=== PATIENT | male | born 1955 | race Caucasian/White ===

== ENCOUNTER 2018-08-23 19:40 | Inpatient (IN) ==
--- NOTE | 2018-08-23 21:19 | DR.EXTPAIN ---
HPI Time seen Time seen: 21:25 PCP Primary Care Physician: HUGO HPI Comment HPI Comment: SEEN IN ED 10DAYS AGO. PLACE ON ANTIBIOTICS BUT NOT GETTING BETTER. THE TOE IS IS NOT PAINFUL BUT YHE ANKLE IS PAINFULL. NO FEVER OR DRAINAGE. FAIL OUT PATIENT TREATMENT. Complaint/Symptoms Chief Complaint Doctor Comments: PAIN RIGHT FOOT WITH NECROTIC GREAT TOE TIMES THREE WEEKS. Chief Complaint:: RIGHT FOOT, ANKLE EDEMA. NOTED WOUND TO RIGHT GREAT TOE. NOTED REDNESS, EDEMA TO RIGHT FOOT. NOTED WHITE BLANCHED AREA AROUND WOUND. Self Treatment fo Chief Complaint: ANTIBIOTICS Nurses notes reviewed Nurses Notes Review: Yes Source History Provided: Patient Mode of arrival Mode of Arrival: Ambulatory Timing Onset of Chief Complaint: 08/13/18 Context History of: None Associated signs and symptoms Associated Signs and Symptoms: Pain, Swelling and Shortness of Breath PMH PMH Past Medical History: Yes Past Medical History: Diabetes Past Surgical History: No Family History History of Family Medical Conditions: No Social History Type of Tobacco Use: None Alcohol Use: None Do you use any recreational Drugs:: No Lives Where: Home infectious screening Have you traveled outside the country in the last 6 months?: No Isolation: Standard ROS Review of Systems Constitutional: No Symptoms Reported and Fatigue; negative Chills and Fever Eyes: No Symptoms Reported ENTM: No Symptoms Reported Respiratoy: Short of Breath (ON EXERSION.) Cardiovascular: No Symptoms Reported Gastrointestinal/Abdominal: No Symptoms Reported Genitourinary: No Symptoms Reported Neurological: No Symptoms Reported Musculoskeletal: No Symptoms Reported, Joint Pain, Muscle Pain, Right, Ankle and Foot Integumentary: Other (PAIN RIGHT FOOT WITH SWELLING. GREAT TOE NECROTIC.) Hematologic/Lymphatic: No Symptoms Reported Endocrine: Decreased Appetite; negative [place] Psychiatric: No Symptoms Reported All Other Systems: Reviewed and Negative PE Vital Signs Vitals: Temperature 97.9 F Pulse Rate 98 Respiratory Rate 18 Blood Pressure [Left Arm] 168/81 Blood Pressure 149/77 O2 Sat by Pulse Oximetry 99 General Limitations: No Limitations General Appearance: Alert and In No Apparent Distress Head Head Exam: Normal Inspection and Atraumatic Eyes Eye exam: Normal Appearance, PERRL and EOMI; negative Scleral Icterus and Conjunctival Injection ENT ENT Exam: Normal Exam, Normal Oropharynx, Normal External Ear Exam, Mucous Membranes Moist and TM's Normal Bilaterally Neck Neck Exam: Normal Inspection and Trachea Midline Chest Chest Inspection: Normal Inspection and Symmetric Chest Wall Rise Respiratory Respiratory Exam: Normal Lung Sounds Bilat Respiratory Exam: Bilateral: Clear to Auscultation Cardiovascular Cardiovascular Exam: Regular Rate and Normal Rhythm Abdominal Exam Abdominal Exam: Normal Inspection, Normal Bowel Sounds and Soft Extremities Extremities Exam: Tenderness (RIGHT GREAT TOE NECROTIC AND RT FOOT SWOLLEN AND TENDER.) and Edema Back Back Exam: Normal Inspection Neurological Neurological Exam: Alert, Oriented X3 and CN II-XII Intact; negative Motor Sensory Deficit Psychiatric Psychiatric Exam: Normal Affect and Normal Mood Skin Skin Exam: Erythema Distribution: RLE Description: Erythematous MDM Differential Diagnosis Differential Diagnosis: Other (CELLULITIS AND DIABETIC FOOT ULCER RIGHT FOOT.) COURSE Treatment Treatment: SEE ORDERS. Consultation Consultation Comments: DISCUSS PATIENT WITH DR. RODARTE. HE WILL ADMIT PATIENT. Education/Counseling Education/Counseling: Patient, Family and Education Educated On: Diagnosis ROR Labs Reviewed Laboratory Results Reviewed?: Yes Result Diagrams: 08/23/18 21:25 08/23/18 21:25 Laboratory: WBC 10.4 X10^3/uL (3.6-10.0) H 08/23/18 21:25 RBC 4.47 X10^6/uL (4.7-6.0) L 08/23/18 21:25 Hgb 14.9 g/dL (13.5-18.0) 08/23/18 21:25 Hct 42.1 % (42.0-54.0) 08/23/18 21:25 MCV 94.0 fL (80.0-100.0) 08/23/18 21:25 MCH 33.4 pg (27.0-34.0) 08/23/18 21:25 MCHC 35.5 g/dL (33.0-35.0) H 08/23/18 21:25 RDW 12.4 % (11.6-16.5) 08/23/18 21:25 Plt Count 294 X10^3/uL (150.0-450.0) 08/23/18 21:25 MPV 7.0 fL (7.4-11.0) L 08/23/18 21:25 Neut % (Auto) 68.6 % (42.0-75.0) 08/23/18 21:25 Lymph % (Auto) 20.9 % (21.0-51.0) L 08/23/18 21:25 [place] % (Auto) 8.5 % (0.0-13.0) 08/23/18 21:25 Eos % (Auto) 1.3 % (0.9-2.9) 08/23/18 21:25 Baso % (Auto) 0.7 % (0.2-1.0) 08/23/18 21:25 Neut # (Auto) 7.1 x10^3/uL (2.2-4.8) H 08/23/18 21:25 Lymph # (Auto) 2.2 X10^3/uL (1.3-2.9) 08/23/18 21:25 [place] # (Auto) 0.9 x10^3/uL (0.3-0.8) H 08/23/18 21:25 Eos # (Auto) 0.1 x10^3/uL (0.0-0.2) 08/23/18 21:25 Baso # (Auto) 0.1 X10^3/uL (0.0-0.1) 08/23/18 21:25 Absolute Nucleated RBC 0.0 /100WBC 08/23/18 21:25 Sodium 134 mmol/L (136-145) L 08/23/18 21:25 Corrected Sodium 135 mmol/L (136-145) L 08/23/18 21:25 Potassium 4.6 mmol/L (3.5-5.1) 08/23/18 21:25 Chloride 98 mmol/L (98-107) 08/23/18 21:25 Carbon Dioxide 27.8 mmol/L (21-32) 08/23/18 21:25 BUN 28 mg/dL (7-18) H 08/23/18 21:25 Creatinine 1.42 mg/dL (0.70-1.30) H 08/23/18 21:25 Est GFR (MDRD) Af Amer > 60 (>60) 08/23/18 21:25 Est GFR (MDRD) Non-Af 54 (>60) L 08/23/18 21:25 Glucose 144 mg/dL (65-99) H 08/23/18 21:25 Lactic Acid 0.8 mmol/L (0.4-2.0) 08/23/18 21:25 Calcium 9.8 mg/dL (8.5-10.1) 08/23/18 21:25 Corrected Calcium TNP 08/23/18 21:25 Total Bilirubin 0.50 mg/dL (0.2-1.0) 08/23/18 21:25 AST 17 Units/L (15-37) 08/23/18 21:25 ALT 35 Units/L (12-78) 08/23/18 21:25 Alkaline Phosphatase 78 Units/L (46-116) 08/23/18 21:25 Total Protein 8.8 g/dL (6.4-8.2) H 08/23/18 21:25 Albumin 3.8 g/dL (3.4-5.0) 08/23/18 21:25 Globulin 5.0 g/dL (2.5-4.5) H 08/23/18 21:25 Albumin/Globulin Ratio 0.8 Ratio (1.1-2.1) L 08/23/18 21:25 Specimen Type Clean catch urine 08/23/18 22:40 Urine Color Yellow (YELLOW) 08/23/18 22:40 Urine Appearance Clear (CLEAR) 08/23/18 22:40 Urine pH 5.0 (5.0 - 8.0) 08/23/18 22:40 Ur Specific [place] 1.015 (1.000-1.030) 08/23/18 22:40 Urine Protein 1+ (NEGATIVE) 08/23/18 22:40 Urine Glucose (UA) Negative (NEGATIVE) 08/23/18 22:40 Urine Ketones Negative (NEGATIVE) 08/23/18 22:40 Urine Occult Blood Negative (NEGATIVE) 08/23/18 22:40 Urine Nitrite Negative (NEGATIVE) 08/23/18 22:40 Urine Bilirubin Negative (NEGATIVE) 08/23/18 22:40 Urine Urobilinogen Normal (NORMAL) 08/23/18 22:40 Ur Leukocyte Esterase 1+ (NEGATIVE) 08/23/18 22:40 Urine RBC None seen /HPF (NONE SEEN) 08/23/18 22:40 Urine WBC 0-2 /HPF (NONE SEEN) 08/23/18 22:40 Ur Squamous Epith Cells Rare /HPF (NEGATIVE) 08/23/18 22:40 Amorphous Sediment Trace /HPF (NEGATIVE) 08/23/18 22:40 Urine Bacteria Negative /HPF (NEGATIVE) 08/23/18 22:40 Ur Culture Indicated? No/not indicated 08/23/18 22:40 XRAY XRAY Interpreted by: Radiologist XRAY Findings: REPORT DISCUSS WITH PATIENT. EKG [place]: Normal Rhythm: NSR Block: None Hypertrophy: None ST: Normal Diagnosis Discharge Problem: Diabetic foot ulcer, Cellulitis of great toe of right foot
[2018-08-23 21:41] LABS: BASOPHILS # (AUTO) 0.1 X10^3/uL (0.0-0.1); BASOPHILS % (AUTO) 0.7 % (0.2-1.0); EOSINOPHILS # (AUTO) 0.1 x10^3/uL (0.0-0.2); EOSINOPHILS % (AUTO) 1.3 % (0.9-2.9); HEMATOCRIT 42.1 % (42.0-54.0); HEMOGLOBIN 14.9 g/dL (13.5-18.0); LYMPHOCYTES # (AUTO) 2.2 X10^3/uL (1.3-2.9); LYMPHOCYTES % (AUTO) 20.9 % (21.0-51.0); MEAN CORPUSCULAR HEMOGLOBIN 33.4 pg (27.0-34.0); MEAN CORPUSCULAR HGB CONC 35.5 g/dL (33.0-35.0); MONOCYTES # (AUTO) 0.9 x10^3/uL (0.3-0.8); MONOCYTES % (AUTO) 8.5 % (0.0-13.0); NEUTROPHILS # (AUTO) 7.1 x10^3/uL (2.2-4.8); NEUTROPHILS % (AUTO) 68.6 % (42.0-75.0); PLATELET COUNT 294 X10^3/uL (150.0-450.0); RED BLOOD COUNT 4.47 X10^6/uL (4.7-6.0); RED CELL DISTRIBUTION WIDTH 12.4 % (11.6-16.5); WHITE BLOOD COUNT 10.4 X10^3/uL (3.6-10.0)
[2018-08-23 21:49] LABS: ALANINE AMINOTRANSFERASE 35 Units/L (12-78); ALBUMIN 3.8 g/dL (3.4-5.0); ALKALINE PHOSPHATASE 78 Units/L (46-116); ASPARTATE AMINO TRANSFERASE 17 Units/L (15-37); BLOOD UREA NITROGEN 28 mg/dL (7-18); CALCIUM 9.8 mg/dL (8.5-10.1); CARBON DIOXIDE 27.8 mmol/L (21-32); CHLORIDE 98 mmol/L (98-107); COR NA(FOR HYPERGLY) 135 mmol/L (136-145); CREATININE 1.42 mg/dL (0.70-1.30); SODIUM 134 mmol/L (136-145); TOTAL PROTEIN 8.8 g/dL (6.4-8.2); eGFR NON BLACK RACES 54 (>60)
--- NOTE | 2018-08-23 21:54 | RAD ---
HISTORY: Right foot pain with ankle edema. Right great toe wound Study: 2 views of the right foot. Comparison: None Findings: No acute fracture or dislocation. Joint spaces are well aligned. Soft tissue irregularity along the distal 1st digit without definite underlying bony abnormality. IMPRESSION: 1. Soft tissue irregularity along the distal 1st digit without definite underlying bony abnormality Reported By:
[2018-08-23 22:01] LABS: LACTIC ACID 0.8 mmol/L (0.4-2.0)
[2018-08-23] MEDS ORDERED: PHENERGAN TAB 25 MG PO PRN (22:46)
[2018-08-23] MEDS ORDERED: MORPHINE SULFATE INJ 4 MG IVP PRN (22:46)
[2018-08-23] MEDS ORDERED: VANCOMYCIN 1 GRAM PREMIX (ADDVANTAGE) 250 ML IV ONE (22:58)
[2018-08-23] MEDS ORDERED: VANCOMYCIN HCL 1 GM VIAL 1 G in D5W 250 ML IV 250 ML IV SCH (23:00)
[2018-08-23 23:01] LABS: BILIRUBIN,URINE NEGATIVE (NEGATIVE); BLOOD/HEMOGLOBIN,URINE NEGATIVE (NEGATIVE); GLUCOSE, URINE NEGATIVE (NEGATIVE); KETONES,URINE NEGATIVE (NEGATIVE); LEUKOCYTE ESTERASE ,URINE 1+ (NEGATIVE); NITRITES,URINE NEGATIVE (NEGATIVE); PROTEIN,URINE 1+ (NEGATIVE); UROBILINOGEN,URINE NORMAL (NORMAL)
[2018-08-23 23:12] LABS: AMORPHOUS SEDIMENT,UR TRACE /HPF (NEGATIVE); APPEARANCE,URINE CLEAR (CLEAR); BACTERIA,URINE NEGATIVE /HPF (NEGATIVE); COLOR,URINE YELLOW (YELLOW); RBC,URINE NONE SEEN /HPF (NONE SEEN); SQUAMOUS EPITHELIAL CELL,UR RARE /HPF (NEGATIVE)
[2018-08-23] MEDS: NS 1000 ML 1,000 ML IV SCH (23:29)
[2018-08-24] MEDS ORDERED: PHENERGAN TAB 25 MG PO PRN (00:19)
[2018-08-24 01:13] VITALS: BMI 28.2
[2018-08-24 05:15] LABS: BASOPHILS # (AUTO) 0.1 X10^3/uL (0.0-0.1); BASOPHILS % (AUTO) 0.7 % (0.2-1.0); EOSINOPHILS # (AUTO) 0.2 x10^3/uL (0.0-0.2); EOSINOPHILS % (AUTO) 2.8 % (0.9-2.9); HEMATOCRIT 37.5 % (42.0-54.0); HEMOGLOBIN 13.3 g/dL (13.5-18.0); LYMPHOCYTES # (AUTO) 2.3 X10^3/uL (1.3-2.9); LYMPHOCYTES % (AUTO) 29.8 % (21.0-51.0); MEAN CORPUSCULAR HEMOGLOBIN 33.6 pg (27.0-34.0); MEAN CORPUSCULAR HGB CONC 35.5 g/dL (33.0-35.0); MEAN CORPUSCULAR VOLUME 94.7 fL (80.0-100.0); MEAN PLATELET VOLUME 7.4 fL (7.4-11.0); MONOCYTES # (AUTO) 0.8 x10^3/uL (0.3-0.8); MONOCYTES % (AUTO) 10.7 % (0.0-13.0); NEUTROPHILS # (AUTO) 4.4 x10^3/uL (2.2-4.8); PLATELET COUNT 258 X10^3/uL (150.0-450.0); RED BLOOD COUNT 3.96 X10^6/uL (4.7-6.0); RED CELL DISTRIBUTION WIDTH 12.4 % (11.6-16.5); WHITE BLOOD COUNT 7.9 X10^3/uL (3.6-10.0)
[2018-08-24 05:31] LABS: ALANINE AMINOTRANSFERASE 30 Units/L (12-78); ALBUMIN 3.1 g/dL (3.4-5.0); ALKALINE PHOSPHATASE 68 Units/L (46-116); ASPARTATE AMINO TRANSFERASE 16 Units/L (15-37); BLOOD UREA NITROGEN 24 mg/dL (7-18); CALCIUM 8.9 mg/dL (8.5-10.1); CARBON DIOXIDE 28.4 mmol/L (21-32); CHLORIDE 103 mmol/L (98-107); COR CA(FOR HYPOALB) 9.6 mg/dL (8.5-10.1); COR NA(FOR HYPERGLY) 138 mmol/L (136-145); SODIUM 137 mmol/L (136-145); TOTAL PROTEIN 7.4 g/dL (6.4-8.2); eGFR NON BLACK RACES > 60 (>60)
[2018-08-24] MEDS: ZOSYN VIAL 3.375 GRAMS 3.375 G in NS 100 ML IV + SPIKE MINIBAG* 100 ML IV SCH ×3 (05:46→22:26)
[2018-08-24] MEDS: MILK OF MAGNESIA PO SCH ×3 (07:59→20:46)
[2018-08-24] MEDS: NS 1000 ML 1,000 ML IV SCH ×3 (08:01→23:32)
--- NOTE | 2018-08-24 14:02 | CT ---
CTA OF THE ABDOMEN AND PELVIS AND BILATERAL LOWER EXTREMITY RUNOFF WITHOUT AND WITH CONTRAST CLINICAL INDICATION: Right foot and ankle edema. TECHNIQUE: Written informed consent was obtained. Non-gated spiral axial images of the lower thorax, abdomen, pelvis and lower extremities were obtained with nonionic intravenous contrast. 3D reconstru ctions were performed. Dose reduction techniques including Automated Exposure Control (AEC) and adjus tment of mA and kV were utlized. COMPARISON: None. FINDINGS: VASCULAR: Abdominal Aorta: No significant stenosis. Inferior Mesenteric Artery: No significant stenosis. RIGHT PELVIS/LOWER EXTREMITY: Right Common Iliac Artery: No significant stenosis. Right Internal Iliac Artery: No significant stenosis. Right External Iliac Artery: No significant stenosis. Right Common Femoral Artery: No significant stenosis. Right Profunda Femoris Artery: No significant stenosis. Right Superficial Femoral Artery: No significant stenosis. Right Popliteal Artery: No significant stenosis. Right Anterior Tibial Artery: Severe stenosis of the midportion the distal patency appears to be main tained. Right Tibioperoneal Trunk: No significant stenosis. Right Posterior Tibial Artery: No significant stenosis. Crosses the ankle to supply the plantar arch . Right Peroneal Artery: No significant stenosis. LEFT PELVIS/LOWER EXTREMITY: Left Common Iliac Artery: No significant stenosis. Left Internal Iliac Artery: No significant stenosis. Left External Iliac Artery: No significant stenosis. Left Common Femoral Artery: No significant stenosis. Left Profunda Femoris Artery: No significant stenosis. Left Superficial Femoral Artery: No significant stenosis. Left Popliteal Artery: No significant stenosis. Left Anterior Tibial Artery: Severe stenosis at the midportion but distal patency appears to be maint ained. Left Tibioperoneal Trunk: No significant stenosis. Left Posterior Tibial Artery: No significant stenosis. Crosses the ankle to supply the plantar arch. Left Peroneal Artery: No significant stenosis. Abdomen without: No renal stones. Abdomen with: Liver and spleen are normal in size, enhancement characteristics and contour. No focal lesions. The portal vein is patent. No ductal dilitation. Gallbladder is present. No gallbladder wall thickening. The pancreas is unremarkable. Adrenal glands are normal. Kidneys enhance symmetrically w ithout hydronephrosis. No bowel obstruction or inflammation. Normal appendix. No abnormal appearing mesenteric or retroperit [place] lymph nodes. No free fluid or fluid collections. Pelvis without: No distal ureteral stones or bladder stones. Pelvis with: Thick-walled bladder. Prostate not enlarged. No free fluid or abnormal pelvic lymph nod es. No aggressive osseous lesions. IMPRESSION: 1. 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 2. Thick-walled bladder. Correlate with bladder outlet obstruction. Reported By:
[2018-08-24] MEDS: HumuLIN R SUBCUT PRN ×2 (17:09→22:00)
--- NOTE | 2018-08-24 19:57 | DR.H&P ---
H&P - History & Physical for Day of: H&P Date: 08/23/18 - Chief Complaint Chief Complaint: RIGHT FOOT AND ANKLE REDNESS AND EDEMA - History of Present Illness History of Present Illness: IS A 63 YEAR OLD WHITE MALE WHO PRESENTED TO THE EMERGENCY ROOM WITH COMPLAINTS OF RIGHT FOOT AND ANKLE EDEMA. HE REPORTS THAT SYMPTOMS STARTED ON 08/13/2018. HE WAS SEEN IN THE ER AND PLACED ON ORAL ANTIBIOTICS, HOWEVER, SYMPTOMS HAVE WORSENED. ON EXAMINATION, RIGHT FOOT AND ANKLE NOTED WITH ERYTHEMA AND EDEMA. THERE IS A NECROTIC WOUND TO THE GREAT TOE. NOTED WHITE BLANCED AREA AROUND WOUND. HE REPORTS NUMBNESS TO AREA. HE REPORTS RECENTLY BEING DIAGNOSED WITH DIABETES, HOWEVER, DOES NOT TAKE ANY MEDICATIONS FOR IT. ON ARRIVAL, VITALS WERE 97.9-98-18-99%-149/77. LABS WERE OBTAINED. ABNORMAL LAB VALUES INCLUDE THE FOLLOWING: WBC 10.4, RBC 4.47, SODIUM 134, BUN 28, CREATININE 1.42, GLUCOSE 144, TOTAL PROTEIN 8.8. A RIGHT FOOT XRAY WAS OBTAINED AND REVEALED: Soft tissue irregularity along the distal 1st digit without de. finite underlying bony abnormality. HE WAS ADMITTED TO THE HOSPITAL FOR FURTHER EVALUATION AND TREATMENT. HE WAS STARTED ON VANCOMYCIN 1GM IV Q12H PRN PAIN, ZOSYN 3.375GM IV TID, AND MORPHINE 4MG IV Q6H PRN PAIN. WE PLAN TO FOLLOW UP WITH AM LABS AND CONTINUE TO MONITOR PATIENT. - Past Medical History Past Medical History: Diabetes - Social History Does patient currently use any type of tobacco product: Yes Have you used tobacco products in the last 12 months: Yes Type of Tobacco Use: None Alcohol Use: None Drug Use: None - Medications Home Medications: No Known Drug Allergies Allergy (Verified 08/23/18 20:37) - Physical Exam Vital Signs: Temperature 97.8 F Pulse Rate [Right Radial] 76 Pulse Rate 98 Respiratory Rate 18 Blood Pressure [Left Arm] 146/85 Blood Pressure 149/77 O2 Sat by Pulse Oximetry 98 - Allergies Allergies/Adverse Reactions: Allergies Allergy/AdvReac Type Severity Reaction Status Date / Time No Known Drug Allergies Allergy Verified 08/23/18 20:37
[2018-08-24] MEDS: COLACE CAP 100 MG PO SCH (20:46)
[2018-08-24] MEDS: SNACK - Diabetic Appropriate PO SCH (20:52)
[2018-08-24] MEDS: VANCOMYCIN HCL 500 MG VIAL 250 MG, VANCOMYCIN HCL 1 GM VIAL 1 G in D5W 250 ML IV 250 ML IV SCH (22:30)
[2018-08-24] MEDS ORDERED: D5W 250 ML IV 250 ML IV ONE (22:35)
[2018-08-24] MEDS ORDERED: VANCOMYCIN HCL 500 MG VIAL ONE (22:35)
[2018-08-24] MEDS ORDERED: VANCOMYCIN HCL 1 GM VIAL ONE (22:35)
[2018-08-25] MEDS: ZOSYN VIAL 3.375 GRAMS 3.375 G in NS 100 ML IV + SPIKE MINIBAG* 100 ML IV SCH ×3 (05:26→21:00)
[2018-08-25 06:01] LABS: BASOPHILS # (AUTO) 0.1 X10^3/uL (0.0-0.1); BASOPHILS % (AUTO) 0.8 % (0.2-1.0); EOSINOPHILS # (AUTO) 0.2 x10^3/uL (0.0-0.2); HEMATOCRIT 36.9 % (42.0-54.0); HEMOGLOBIN 12.9 g/dL (13.5-18.0); LYMPHOCYTES # (AUTO) 1.7 X10^3/uL (1.3-2.9); LYMPHOCYTES % (AUTO) 26.1 % (21.0-51.0); MEAN CORPUSCULAR HEMOGLOBIN 32.9 pg (27.0-34.0); MEAN CORPUSCULAR HGB CONC 34.9 g/dL (33.0-35.0); MEAN CORPUSCULAR VOLUME 94.5 fL (80.0-100.0); MEAN PLATELET VOLUME 7.5 fL (7.4-11.0); MONOCYTES # (AUTO) 0.6 x10^3/uL (0.3-0.8); MONOCYTES % (AUTO) 8.7 % (0.0-13.0); NEUTROPHILS # (AUTO) 3.9 x10^3/uL (2.2-4.8); NEUTROPHILS % (AUTO) 61.4 % (42.0-75.0); PLATELET COUNT 252 X10^3/uL (150.0-450.0); RED BLOOD COUNT 3.91 X10^6/uL (4.7-6.0); RED CELL DISTRIBUTION WIDTH 12.4 % (11.6-16.5); WHITE BLOOD COUNT 6.4 X10^3/uL (3.6-10.0)
[2018-08-25 06:17] LABS: ALANINE AMINOTRANSFERASE 32 Units/L (12-78); ALBUMIN 2.6 g/dL (3.4-5.0); ALKALINE PHOSPHATASE 64 Units/L (46-116); ASPARTATE AMINO TRANSFERASE 17 Units/L (15-37); BLOOD UREA NITROGEN 13 mg/dL (7-18); CALCIUM 8.4 mg/dL (8.5-10.1); CARBON DIOXIDE 29.8 mmol/L (21-32); CHLORIDE 106 mmol/L (98-107); COR CA(FOR HYPOALB) 9.5 mg/dL (8.5-10.1); COR NA(FOR HYPERGLY) 141 mmol/L (136-145); CREATININE 1.04 mg/dL (0.70-1.30); SODIUM 140 mmol/L (136-145); TOTAL PROTEIN 6.5 g/dL (6.4-8.2); eGFR NON BLACK RACES > 60 (>60)
--- NOTE | 2018-08-25 08:29 | PCM.PROG ---
Progress Note - Progress Note for Day of Date of Exam: 08/24/18 - Subjective Subjective: WAS ADMITTED FOR RIGHT FOOT AND ANKLE CELLULITIS WITH A NECROTIC DIABETIC ULCER TO THE RIGHT GREAT TOE. TODAY, HE IS ALERT AND ORIENTED, LYING IN BED ON MORNING ROUNDS. HE CONTINUES WITH ERYTHEMA AND EDEMA TO THE RIGHT FOOT. NO DRAINAGE NOTED AT THIS TIME. HE CONTINUES TO REPORT NUMBNESS TO THE RIGHT GREAT TOE. HIS VITALS THIS MORNING ARE 97.5-74-18-97%-145/81. LABS WERE OBTAINED. ABNORMAL LAB VALUES INCLUDE THE FOLLOWING: RBC 3.96, HGB 13.3, HCT 37.5, BUN 24, GLUCOSE 122, ALBUMIN 3.1. HE IS CURRENTLY RECEIVING VANCOMYCIN AND ZOSYN IV. WE WILL CONTINUE WITH CURRENT PLAN OF CARE AND CONSULT FOR POSSIBLE DEBRIDEMENT OF WOUND. WE WILL ALSO OBTAIN A LOWER EXTREMITY CTA WITH CONTRAST TO ASSESS BLOOD FLOW. OTHERWISE, WE WILL FOLLOW UP WITH AM LABS AND CONTINUE TO MONITOR PATIENT. - Past Medical Family Social History Past Med/Fam/Surg Hx: No changes since H&P Allergies: Allergies No Known Drug Allergies Allergy (Verified 08/23/18 20:37) - Review of Systems ROS: No change since H&P - Vital Signs and I&O's Vital Signs: Temperature 98.0 F Pulse Rate [Right Radial] 71 Pulse Rate 98 Respiratory Rate 20 Blood Pressure [Right Arm] 140/69 Blood Pressure [Left Arm] 146/85 Blood Pressure 149/77 O2 Sat by Pulse Oximetry 97 Intake and Output: Intake & Output 08/22/18 08/23/18 08/24/18 08/25/18 11:59 11:59 11:59 11:59 Intake Total 1000 / 1000 2870 / 2870 Balance 1000 / 1000 2870 / 2870 - Physical Exam Oriented: Normal Eyes: Normal Ear: Normal Nose: Normal Throat: Normal Respiratory: Normal Cardiovascular: Edema (RIGHT FOOT ) : Normal Auscultation: Bowel Sounds: Normal Palpation: Normal Tenderness: Normal Skin: Red (RIGHT FOOT ), Tender, Hot, Wound (RIGHT GREAT TOE) Musculoskeletal: Right, Ankle, Foot, Swelling, Tender Psychiatric: Normal Mood Description: Calm Affect: Normal Speech Pattern: Clear, Appropriate - Laboratory and Diagnostics Result Diagrams: 08/25/18 04:06 08/25/18 04:06 Labs: Laboratory WBC 6.4 X10^3/uL (3.6-10.0) 08/25/18 04:06 RBC 3.91 X10^6/uL (4.7-6.0) L 08/25/18 04:06 Hgb 12.9 g/dL (13.5-18.0) L 08/25/18 04:06 Hct 36.9 % (42.0-54.0) L 08/25/18 04:06 MCV 94.5 fL (80.0-100.0) 08/25/18 04:06 MCH 32.9 pg (27.0-34.0) 08/25/18 04:06 MCHC 34.9 g/dL (33.0-35.0) 08/25/18 04:06 RDW 12.4 % (11.6-16.5) 08/25/18 04:06 Plt Count 252 X10^3/uL (150.0-450.0) 08/25/18 04:06 MPV 7.5 fL (7.4-11.0) 08/25/18 04:06 Neut % (Auto) 61.4 % (42.0-75.0) 08/25/18 04:06 Lymph % (Auto) 26.1 % (21.0-51.0) 08/25/18 04:06 [place] % (Auto) 8.7 % (0.0-13.0) 08/25/18 04:06 Eos % (Auto) 3.0 % (0.9-2.9) H 08/25/18 04:06 Baso % (Auto) 0.8 % (0.2-1.0) 08/25/18 04:06 Neut # (Auto) 3.9 x10^3/uL (2.2-4.8) 08/25/18 04:06 Lymph # (Auto) 1.7 X10^3/uL (1.3-2.9) 08/25/18 04:06 [place] # (Auto) 0.6 x10^3/uL (0.3-0.8) 08/25/18 04:06 Eos # (Auto) 0.2 x10^3/uL (0.0-0.2) 08/25/18 04:06 Baso # (Auto) 0.1 X10^3/uL (0.0-0.1) 08/25/18 04:06 Absolute Nucleated RBC 0.0 /100WBC 08/25/18 04:06 Sodium 140 mmol/L (136-145) 08/25/18 04:06 Corrected Sodium 141 mmol/L (136-145) 08/25/18 04:06 Potassium 4.3 mmol/L (3.5-5.1) 08/25/18 04:06 Chloride 106 mmol/L (98-107) 08/25/18 04:06 Carbon Dioxide 29.8 mmol/L (21-32) 08/25/18 04:06 BUN 13 mg/dL (7-18) 08/25/18 04:06 Creatinine 1.04 mg/dL (0.70-1.30) 08/25/18 04:06 Est GFR (MDRD) Af Amer > 60 (>60) 08/25/18 04:06 Est GFR (MDRD) Non-Af > 60 (>60) 08/25/18 04:06 Glucose 134 mg/dL (65-99) H 08/25/18 04:06 POC Glucose (mg/dL) 182 mg/dL (65-99) H 08/24/18 16:46 Hemoglobin A1c 6.8 % 08/24/18 14:12 Lactic Acid 0.8 mmol/L (0.4-2.0) 08/23/18 21:25 Calcium 8.4 mg/dL (8.5-10.1) L 08/25/18 04:06 Corrected Calcium 9.5 mg/dL (8.5-10.1) 08/25/18 04:06 Total Bilirubin 0.40 mg/dL (0.2-1.0) 08/25/18 04:06 AST 17 Units/L (15-37) 08/25/18 04:06 ALT 32 Units/L (12-78) 08/25/18 04:06 Alkaline Phosphatase 64 Units/L (46-116) 08/25/18 04:06 Total Protein 6.5 g/dL (6.4-8.2) 08/25/18 04:06 Albumin 2.6 g/dL (3.4-5.0) L 08/25/18 04:06 Globulin 3.9 g/dL (2.5-4.5) 08/25/18 04:06 Albumin/Globulin Ratio 0.7 Ratio (1.1-2.1) L 08/25/18 04:06 Specimen Type Clean catch urine 08/23/18 22:40 Urine Color Yellow (YELLOW) 08/23/18 22:40 Urine Appearance Clear (CLEAR) 08/23/18 22:40 Urine pH 5.0 (5.0 - 8.0) 08/23/18 22:40 Ur Specific [place] 1.015 (1.000-1.030) 08/23/18 22:40 Urine Protein 1+ (NEGATIVE) 08/23/18 22:40 Urine Glucose (UA) Negative (NEGATIVE) 08/23/18 22:40 Urine Ketones Negative (NEGATIVE) 08/23/18 22:40 Urine Occult Blood Negative (NEGATIVE) 08/23/18 22:40 Urine Nitrite Negative (NEGATIVE) 08/23/18 22:40 Urine Bilirubin Negative (NEGATIVE) 08/23/18 22:40 Urine Urobilinogen Normal (NORMAL) 08/23/18 22:40 Ur Leukocyte Esterase 1+ (NEGATIVE) 08/23/18 22:40 Urine RBC None seen /HPF (NONE SEEN) 08/23/18 22:40 Urine WBC 0-2 /HPF (NONE SEEN) 08/23/18 22:40 Ur Squamous Epith Cells Rare /HPF (NEGATIVE) 08/23/18 22:40 Amorphous Sediment Trace /HPF (NEGATIVE) 08/23/18 22:40 Urine Bacteria Negative /HPF (NEGATIVE) 08/23/18 22:40 Ur Culture Indicated? 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
[2018-08-25] MEDS: MILK OF MAGNESIA PO SCH ×2 (08:59→20:56)
[2018-08-25] MEDS: VANCOMYCIN HCL 500 MG VIAL 250 MG, VANCOMYCIN HCL 1 GM VIAL 1 G in D5W 250 ML IV 250 ML IV SCH ×2 (09:15→20:59)
[2018-08-25] MEDS ORDERED: XYLOCAINE 1 % (PLAIN) ONE (09:18)
[2018-08-25] MEDS ORDERED: BACITRACIN VIAL ONE (09:18)
[2018-08-25] MEDS ORDERED: LR 1000 ML IV 1,000 ML IV ONE (09:19)
[2018-08-25] MEDS ORDERED: FENTANYL INJ 100 mcg ONE (09:31)
--- NOTE | 2018-08-25 10:23 | OR.GENERIC ---
Post-Op Note Generic - Post-Op Note Operative Report: Debridement of infected Diabetic ulcer .. 2.5 x 1.5 cm Rt great toe .. Pt has severe neuropathy .. was packed with Iodoform . has positive Doppler signal both Dorsalis pedis and posterior tibial pulses.. will follow in the office .
[2018-08-25] MEDS: ECOTRIN TAB 325 MG PO SCH (12:09)
[2018-08-25] MEDS: PLAVIX PO SCH (12:10)
[2018-08-25] MEDS ORDERED: DIPRIVAN VIAL ONE (13:38)
[2018-08-25] MEDS ORDERED: VERSED ONE (13:38)
[2018-08-25] MEDS ORDERED: XYLOCAINE 2 % (PLAIN) ONE (13:38)
[2018-08-25] MEDS: NS 1000 ML 1,000 ML IV SCH ×3 (14:29→23:00)
[2018-08-25] MEDS ORDERED: VANCOMYCIN HCL 500 MG VIAL ONE (20:34)
[2018-08-25] MEDS ORDERED: D5W 250 ML IV 250 ML IV ONE (20:34)
[2018-08-25] MEDS ORDERED: VANCOMYCIN HCL 1 GM VIAL ONE (20:34)
--- NOTE | 2018-08-25 20:49 | PCM.PROG ---
Progress Note - Progress Note for Day of Date of Exam: 08/25/18 - Subjective Subjective: WAS ADMITTED FOR RIGHT FOOT AND ANKLE CELLULITIS WITH A NECROTIC DIABETIC ULCER TO THE RIGHT GREAT TOE. TODAY, HE IS ALERT AND ORIENTED, LYING IN BED ON MORNING ROUNDS. HE CONTINUES WITH ERYTHEMA AND EDEMA TO THE RIGHT FOOT. NO DRAINAGE NOTED AT THIS TIME. HE CONTINUES TO REPORT NUMBNESS TO THE RIGHT GREAT TOE. HIS VITALS THIS MORNING ARE 98.0-73-20-97%-150/77. LABS WERE OBTAINED. ABNORMAL LAB VALUES INCLUDE THE FOLLOWING: RBC 3.91, HGB 12.9, HCT 36.9, GLUCOSE 134, CALCIUM 8.4, ALBUMIN 2.6. BLOOD CULTURES ARE PENDING. WE OBTAINED A LOWER EXTREMITY CTA WITH CONTRAST YESTERDAY. IT REVEALED: Bilateral severe anterior tibial artery stenosis with distal patency maintained. Thick-walled bladder. Correlate with bladder outlet obstruction. PLANS TO TAKE HIM TO THE OR FOR DEBRIDEMENT OF WOUND. HE IS CURRENTLY RECEIVING VANCOMYCIN AND ZOSYN IV. WE WILL CONTINUE WITH CURRENT PLAN OF CARE. AFTER SURGERY, WE WILL START ASPIRIN 325MG PO DAILY, PLAVIX 75MG PO DAILY, AND CRESTOR 20MG PO AT BEDTIME. OTHERWISE, WE WILL FOLLOW UP WITH AM LABS AND CONTINUE TO MONITOR PATIENT. - Past Medical Family Social History Past Med/Fam/Surg Hx: No changes since H&P Allergies: Allergies No Known Drug Allergies Allergy (Verified 08/23/18 20:37) - Review of Systems ROS: No change since H&P - Vital Signs and I&O's Vital Signs: Temperature 98.0 F Pulse Rate [Right Radial] 74 Pulse Rate 98 Respiratory Rate 20 Blood Pressure [Right Arm] 183/89 Blood Pressure [Left Arm] 146/85 Blood Pressure 149/77 O2 Sat by Pulse Oximetry 97 Intake and Output: Intake & Output 08/23/18 08/24/18 08/25/18 08/26/18 11:59 11:59 11:59 11:59 Intake Total 1000 / 1000 3320 / 3320 1170 / 1170 Output Total 50 / 50 Balance 1000 / 1000 3270 / 3270 1170 / 1170 - Physical Exam Oriented: Normal Eyes: Normal Ear: Normal Nose: Normal Throat: Normal Respiratory: Normal Cardiovascular: Edema (RIGHT FOOT ) : Normal Auscultation: Bowel Sounds: Normal Palpation: Normal Tenderness: Normal Skin: Red (RIGHT FOOT ), Tender, Hot, Wound (RIGHT GREAT TOE) Musculoskeletal: Right, Ankle, Foot, Swelling, Tender Psychiatric: Normal Mood Description: Calm Affect: Normal Speech Pattern: Clear, Appropriate - Laboratory and Diagnostics Result Diagrams: 08/25/18 04:06 08/25/18 04:06 Labs: 08/23/18 21:25 Blood Blood Culture - Preliminary 08/23/18 21:20 Blood Blood Culture - Preliminary 08/25/18 09:57 Toe - Right Big Gram Stain - Final Laboratory WBC 6.4 X10^3/uL (3.6-10.0) 08/25/18 04:06 RBC 3.91 X10^6/uL (4.7-6.0) L 08/25/18 04:06 Hgb 12.9 g/dL (13.5-18.0) L 08/25/18 04:06 Hct 36.9 % (42.0-54.0) L 08/25/18 04:06 MCV 94.5 fL (80.0-100.0) 08/25/18 04:06 MCH 32.9 pg (27.0-34.0) 08/25/18 04:06 MCHC 34.9 g/dL (33.0-35.0) 08/25/18 04:06 RDW 12.4 % (11.6-16.5) 08/25/18 04:06 Plt Count 252 X10^3/uL (150.0-450.0) 08/25/18 04:06 MPV 7.5 fL (7.4-11.0) 08/25/18 04:06 Neut % (Auto) 61.4 % (42.0-75.0) 08/25/18 04:06 Lymph % (Auto) 26.1 % (21.0-51.0) 08/25/18 04:06 [place] % (Auto) 8.7 % (0.0-13.0) 08/25/18 04:06 Eos % (Auto) 3.0 % (0.9-2.9) H 08/25/18 04:06 Baso % (Auto) 0.8 % (0.2-1.0) 08/25/18 04:06 Neut # (Auto) 3.9 x10^3/uL (2.2-4.8) 08/25/18 04:06 Lymph # (Auto) 1.7 X10^3/uL (1.3-2.9) 08/25/18 04:06 [place] # (Auto) 0.6 x10^3/uL (0.3-0.8) 08/25/18 04:06 Eos # (Auto) 0.2 x10^3/uL (0.0-0.2) 08/25/18 04:06 Baso # (Auto) 0.1 X10^3/uL (0.0-0.1) 08/25/18 04:06 Absolute Nucleated RBC 0.0 /100WBC 08/25/18 04:06 Sodium 140 mmol/L (136-145) 08/25/18 04:06 Corrected Sodium 141 mmol/L (136-145) 08/25/18 04:06 Potassium 4.3 mmol/L (3.5-5.1) 08/25/18 04:06 Chloride 106 mmol/L (98-107) 08/25/18 04:06 Carbon Dioxide 29.8 mmol/L (21-32) 08/25/18 04:06 BUN 13 mg/dL (7-18) 08/25/18 04:06 Creatinine 1.04 mg/dL (0.70-1.30) 08/25/18 04:06 Est GFR (MDRD) Af Amer > 60 (>60) 08/25/18 04:06 Est GFR (MDRD) Non-Af > 60 (>60) 08/25/18 04:06 Glucose 134 mg/dL (65-99) H 08/25/18 04:06 POC Glucose (mg/dL) 185 mg/dL (65-99) H 08/25/18 20:30 Hemoglobin A1c 6.8 % 08/24/18 14:12 Lactic Acid 0.8 mmol/L (0.4-2.0) 08/23/18 21:25 Calcium 8.4 mg/dL (8.5-10.1) L 08/25/18 04:06 Corrected Calcium 9.5 mg/dL (8.5-10.1) 08/25/18 04:06 Total Bilirubin 0.40 mg/dL (0.2-1.0) 08/25/18 04:06 AST 17 Units/L (15-37) 08/25/18 04:06 ALT 32 Units/L (12-78) 08/25/18 04:06 Alkaline Phosphatase 64 Units/L (46-116) 08/25/18 04:06 Total Protein 6.5 g/dL (6.4-8.2) 08/25/18 04:06 Albumin 2.6 g/dL (3.4-5.0) L 08/25/18 04:06 Globulin 3.9 g/dL (2.5-4.5) 08/25/18 04:06 Albumin/Globulin Ratio 0.7 Ratio (1.1-2.1) L 08/25/18 04:06 Specimen Type Clean catch urine 08/23/18 22:40 Urine Color Yellow (YELLOW) 08/23/18 22:40 Urine Appearance Clear (CLEAR) 08/23/18 22:40 Urine pH 5.0 (5.0 - 8.0) 08/23/18 22:40 Ur Specific [place] 1.015 (1.000-1.030) 08/23/18 22:40 Urine Protein 1+ (NEGATIVE) 08/23/18 22:40 Urine Glucose (UA) Negative (NEGATIVE) 08/23/18 22:40 Urine Ketones Negative (NEGATIVE) 08/23/18 22:40 Urine Occult Blood Negative (NEGATIVE) 08/23/18 22:40 Urine Nitrite Negative (NEGATIVE) 08/23/18 22:40 Urine Bilirubin Negative (NEGATIVE) 08/23/18 22:40 Urine Urobilinogen Normal (NORMAL) 08/23/18 22:40 Ur Leukocyte Esterase 1+ (NEGATIVE) 08/23/18 22:40 Urine RBC None seen /HPF (NONE SEEN) 08/23/18 22:40 Urine WBC 0-2 /HPF (NONE SEEN) 08/23/18 22:40 Ur Squamous Epith Cells Rare /HPF (NEGATIVE) 08/23/18 22:40 Amorphous Sediment Trace /HPF (NEGATIVE) 08/23/18 22:40 Urine Bacteria Negative /HPF (NEGATIVE) 08/23/18 22:40 Ur Culture Indicated? 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 - Non-pressure chronic ulcer of other part of right foot with necrosis of muscle Plan: CONSULT GENERAL SURGERY FOR POSSIBLE DEBRIDEMENT (3) Diabetes mellitus Status: Acute Qualifiers: Diabetes mellitus type: type 2 Diabetes mellitus fpc insulin use: without terminal carman use Diabetes mellitus complication status: with circulatory complication Diabetes mellitus complication detail: with other circulatory complications Qualified Code(s): E11.59 - Type 2 diabetes mellitus with other circulatory complications Plan: OBTAIN OTBS, SLIDING SCALE INSULIN (4) Stenosis of lower extremity artery Status: Acute Plan: ASPIRIN, PLAVIX, CRESTOR, CONTINUE TO MONITOR
[2018-08-25] MEDS: SNACK - Diabetic Appropriate PO SCH (20:57)
[2018-08-25] MEDS: COLACE CAP 100 MG PO SCH (20:57)
[2018-08-25] MEDS ORDERED: CRESTOR TAB 10 MG PO SCH (21:00)
[2018-08-25] MEDS: HumuLIN R SUBCUT PRN (22:00)
[2018-08-26 05:20] LABS: BASOPHILS # (AUTO) 0.1 X10^3/uL (0.0-0.1); BASOPHILS % (AUTO) 0.9 % (0.2-1.0); EOSINOPHILS # (AUTO) 0.3 x10^3/uL (0.0-0.2); EOSINOPHILS % (AUTO) 4.6 % (0.9-2.9); HEMATOCRIT 36.6 % (42.0-54.0); HEMOGLOBIN 12.8 g/dL (13.5-18.0); LYMPHOCYTES # (AUTO) 1.8 X10^3/uL (1.3-2.9); LYMPHOCYTES % (AUTO) 27.6 % (21.0-51.0); MEAN CORPUSCULAR HEMOGLOBIN 32.9 pg (27.0-34.0); MEAN CORPUSCULAR HGB CONC 35.1 g/dL (33.0-35.0); MEAN CORPUSCULAR VOLUME 93.8 fL (80.0-100.0); MEAN PLATELET VOLUME 7.4 fL (7.4-11.0); MONOCYTES # (AUTO) 0.6 x10^3/uL (0.3-0.8); MONOCYTES % (AUTO) 9.3 % (0.0-13.0); NEUTROPHILS # (AUTO) 3.8 x10^3/uL (2.2-4.8); NEUTROPHILS % (AUTO) 57.6 % (42.0-75.0); PLATELET COUNT 274 X10^3/uL (150.0-450.0); RED CELL DISTRIBUTION WIDTH 12.3 % (11.6-16.5); WHITE BLOOD COUNT 6.7 X10^3/uL (3.6-10.0)
[2018-08-26 05:27] LABS: ALANINE AMINOTRANSFERASE 32 Units/L (12-78); ALBUMIN 2.6 g/dL (3.4-5.0); ALKALINE PHOSPHATASE 62 Units/L (46-116); ASPARTATE AMINO TRANSFERASE 18 Units/L (15-37); BLOOD UREA NITROGEN 8 mg/dL (7-18); CALCIUM 8.3 mg/dL (8.5-10.1); CHLORIDE 104 mmol/L (98-107); COR CA(FOR HYPOALB) 9.4 mg/dL (8.5-10.1); COR NA(FOR HYPERGLY) 143 mmol/L (136-145); CREATININE 0.95 mg/dL (0.70-1.30); SODIUM 141 mmol/L (136-145); TOTAL PROTEIN 6.6 g/dL (6.4-8.2); eGFR NON BLACK RACES > 60 (>60)
[2018-08-26] MEDS: ZOSYN VIAL 3.375 GRAMS 3.375 G in NS 100 ML IV + SPIKE MINIBAG* 100 ML IV SCH (06:20)
[2018-08-26] MEDS ORDERED: HYDROGEN PEROXIDE 3% EXT PRN (08:07)
[2018-08-26] MEDS ORDERED: PHARMACY COMMENT IV NR (08:15)
[2018-08-26] MEDS: PLAVIX PO SCH (08:36)
[2018-08-26] MEDS: ECOTRIN TAB 325 MG PO SCH (08:36)
[2018-08-26] MEDS: MILK OF MAGNESIA PO SCH (08:36)
[2018-08-26] MEDS ORDERED: VANCOMYCIN HCL 500 MG VIAL 250 MG, VANCOMYCIN HCL 1 GM VIAL 1 G in D5W 250 ML IV 250 ML IV SCH (09:00)
[2018-08-26] MEDS ORDERED: GENTAMICIN TOPICAL CRM TOP SCH (09:00)
[2018-08-26 09:07] VITALS: BP 187/86
[2018-08-26] MEDS: NS 1000 ML 1,000 ML IV SCH (09:09)
[2018-08-26] MEDS ORDERED: NS IRRIGATION 500 ML IR ONE (10:16)
--- NOTE | 2018-10-11 21:14 | DR.CARTERD ---
- Discharge Summary for: Discharge Summary for Date of:: 08/26/18 - Admission Date Date of Admission: 08/23/18 - Admission Diagnoses Admission Diagnosis: (1) Cellulitis and abscess of foot (2) Diabetic foot ulcer (3) Diabetes mellitus - Discharge Date Discharge Date: 08/26/18 - Discharge Diagnoses Discharge Diagnosis: (1) Cellulitis and abscess of foot (2) Diabetic foot ulcer (3) Diabetes mellitus - Hospital Course Hospital Course: DAY ONE, IS A 63 YEAR OLD WHITE MALE WHO PRESENTED TO THE EMERGENCY ROOM WITH COMPLAINTS OF RIGHT FOOT AND ANKLE EDEMA. HE REPORTED THAT SYMPTOMS STARTED ON 08/13/2018. HE WAS SEEN IN THE ER AND PLACED ON ORAL ANTIBIOTICS, HOWEVER, SYMPTOMS HAVE WORSENED. ON EXAMINATION, RIGHT FOOT AND ANKLE NOTED WITH ERYTHEMA AND EDEMA. THERE IS A NECROTIC WOUND TO THE GREAT TOE. NOTED WHITE BLANCED AREA AROUND WOUND. HE REPORTED NUMBNESS TO AREA. HE REPORTED RECENTLY BEING DIAGNOSED WITH DIABETES, HOWEVER, DOES NOT TAKE ANY MEDICATIONS FOR IT. ON ARRIVAL, VITALS WERE 97.9-98-18-99%-149/77. LABS WERE OBTAINED. ABNORMAL LAB VALUES INCLUDE THE FOLLOWING: WBC 10.4, RBC 4.47, SODIUM 134, BUN 28, CREATININE 1.42, GLUCOSE 144, TOTAL PROTEIN 8.8. A RIGHT FOOT XRAY WAS OBTAINED AND REVEALED: Soft tissue irregularity along the distal 1st digit without de. finite underlying bony abnormality. HE WAS ADMITTED TO THE HOSPITAL FOR FURTHER EVALUATION AND TREATMENT. HE WAS STARTED ON VANCOMYCIN 1GM IV Q12H PRN PAIN, ZOSYN 3.375GM IV TID, AND MORPHINE 4MG IV Q6H PRN PAIN. WE FOLLOWED UP WITH AM LABS AND CONTINUED TO MONITOR PATIENT. DAY TWO, WAS ADMITTED FOR RIGHT FOOT AND ANKLE CELLULITIS WITH A NECROTIC DIABETIC ULCER TO THE RIGHT GREAT TOE. HE WAS ALERT AND ORIENTED, LYING IN BED ON MORNING ROUNDS. HE CONTINUED WITH ERYTHEMA AND EDEMA TO THE RIGHT FOOT. NO DRAINAGE NOTED AT THIS TIME. HE CONTINUED TO REPORT NUMBNESS TO THE RIGHT GREAT TOE. HIS VITALS THIS MORNING WERE 97.5-74-18-97%-145/81. LABS WERE OBTAINED. ABNORMAL LAB VALUES INCLUDE THE FOLLOWING: RBC 3.96, HGB 13.3, HCT 37.5, BUN 24, GLUCOSE 122, ALBUMIN 3.1. HE IS CURRENTLY RECEIVING VANCOMYCIN AND ZOSYN IV. WE CONTINUED WITH CURRENT PLAN OF CARE AND CONSULTED FOR POSSIBLE DEBRIDEMENT OF WOUND. WE ALSO OBTAINED A LOWER EXTREMITY CTA WITH CONTRAST TO ASSESS BLOOD F LOW. WE FOLLOWED UP WITH AM LABS AND CONTINUED TO MONITOR PATIENT. DAY THREE, TODAY, HE WAS ALERT AND ORIENTED, LYING IN BED ON MORNING ROUNDS. HE CONTINUES WITH ERYTHEMA AND EDEMA TO THE RIGHT FOOT. NO DRAINAGE NOTED AT THIS TIME. HE CONTINUED TO REPORT NUMBNESS TO THE RIGHT GREAT TOE. HIS VITALS THIS MORNING WERE 98.0-73-20-97%-150/77. LABS WERE OBTAINED. ABNORMAL LAB VALUES INCLUDE THE FOLLOWING: RBC 3.91, HGB 12.9, HCT 36.9, GLUCOSE 134, CALCIUM 8.4, ALBUMIN 2.6. BLOOD CULTURES ARE PENDING. WE OBTAINED A LOWER EXTREMITY CTA WITH CONTRAST YESTERDAY. IT REVEALED: Bilateral severe anterior tibial artery stenosis with distal patency maintained. Thick-walled bladder. Correlate with bladder outlet obstruction. PLANS TO TAKE HIM TO THE OR FOR DEBRIDEMENT OF WOUND. HE IS CURRENTLY RECEIVING VANCOMYCIN AND ZOSYN IV. WE WILL CONTINUE WITH CURRENT PLAN OF CARE. AFTER SURGERY, WE STARTED ASPIRIN 325MG PO DAILY, PLAVIX 75MG PO DAILY, AND CRESTOR 20MG PO AT BEDTIME. WE FOLLOWED UP WITH AM LABS AND CONTINUED TO MONITOR PATIENT. DAY FOUR DR. WALKER (GENERAL SURGEON) PERFORMED A excisional debridement of diabetic ulcer right big toe YESTERDAY ON 08/25/18. PATIENT WILL FOLLOW UP WITH DR. WALKER FOR FURTHER EVALUATION OF WOUND. PATIENT'S SYMPTOMS HAVE IMPROVED. LABS ARE WITHIN NORMAL LIMITS AND VITALS WERE STABLE. WE PLANNED FOR DISCHARGE. INSTRUCTIONS AND FOLLOW UP WERE DISCUSSED WITH PATIENT AND FAMILY, BOTH VOICED UNDERSTANDING. PATIENT DISCHARGED HOME IN STABLE CONDITION WITH FAMILY. - Discharge Medications Discharge Medications: Home Medication List aspirin [Ecotrin] 325 mg PO QDAY #90 tab 08/26/18 [Rx] clopidogrel [Plavix] 75 mg PO QDAY #30 tab 08/26/18 [Rx] hydrocodone-acetaminophen [[place]itola] 1 tab PO Q6H #30 tab 08/26/18 [Rx] metformin 250 mg PO BID #30 tab 08/26/18 [Rx] rosuvastatin 20 mg PO HS #30 tab 08/26/18 [Rx] Prescriptions: aspirin [Ecotrin] Raymond Ortiz clopidogrel [Plavix] Raymond Ortiz hydrocodone-acetaminophen [Capitola] Raymond Ortiz metformin Raymond Ortiz rosuvastatin Raymond Ortiz - Discharge Disposition Discharge Disposition: PATIENT TO FOLLOW UP WITH DR. WALKER WHEN APPOINTMENT AVAILABLE. PATIENT IS TO FOLLOW UP IN OUR OFFICE IN ONE WEEK.
== END 2018-08-26 10:45 | disposition home or self-care (01) | DRG 571 ==
LOC: ER 19:45 → MED/SURG 22:43
PROVIDERS: ADMIT Internal Medicine; ATTEND Internal Medicine
DX: E11.51 Type 2 diabetes mellitus with diabetic peripheral angiopathy without gangrene; E11.59 Type 2 diabetes mellitus with other circulatory complications; L97.518 Non-pressure chronic ulcer of other part of right foot with other specified severity; L03.115 Cellulitis of right lower limb; I70.291 Other atherosclerosis of native arteries of extremities, right leg; R60.0 Localized edema; E11.621 Type 2 diabetes mellitus with foot ulcer
CPT/HCPCS: 36415; 73630; 73706; 80053; 81001; 83036; 83605; 85025; 87040; 87070; 87075; 87077; 87186; 87205; 93005; 96365; 96374; 96375; 99284; A4222; J1815; J2250; J2543; J2704; J3010; J3370; J7030; J7050; J7060; J7120